=== PATIENT | female | born 1950 | race Caucasian/White ===

== ENCOUNTER 2023-03-18 13:45 | Inpatient (IN) | payer OTHER, MEDICAID ==
[~2023-03-18] VITALS: Ht 160 cm; Wt 49.4 kg
[2023-03-18 14:01] VITALS: BP_SYST 145; PULSE 94; RESP 22; TEMP 97; O2SAT 97
[2023-03-18 15:09] LABS: ANION GAP 9 (5-15); CALCIUM 9.1 mg/dL (8.4-11.0); CARBON DIOXIDE 30 mmol/L (23-29); CHLORIDE 103 mmol/L (98-107); CREATININE 0.83 mg/dL (0.55-1.30); GLUCOSE 100 mg/dL (74-106); POTASSIUM 3.4 mmol/L (3.5-5.1); SODIUM SERUM 142 mmol/L (136-145); UREA NITROGEN, BLOOD 10 mg/dL (8-21)
[2023-03-18 15:14] LABS: PROTHROMBIN TIME 10.8 SECS (9.5-12.5)
[2023-03-18 15:16] LABS: ALANINE AMINOTRANSFERASE 23 U/L (12-78); ALBUMIN 2.5 g/dL (3.4-4.8); ASPARTATE AMINOTRANSFERASE 23 U/L (10-37); CREATINE KINASE, TOTAL 14 U/L (26-192); LIPASE 63 U/L (73-393); TOTAL BILIRUBIN 0.8 mg/dL (0.0-1.0); TOTAL PROTEIN, SERUM 6.9 g/dL (6.4-8.3)
[2023-03-18 15:31] LABS: ACETONE, SERUM NEGATIVE (NEGATIVE)
[2023-03-18 15:39] LABS: BASOPHILS % (AUTO) 0.3 % (0.0-2.0); EOSINOPHILS # (AUTO) 0.1 K/uL (0.0-0.4); EOSINOPHILS % (AUTO) 1.2 % (0.0-4.0); HEMATOCRIT 34.2 % (36-48); HEMOGLOBIN 10.8 g/dL (12.0-16.0); LYMPHOCYTES # (AUTO) 0.8 K/uL (1.0-5.5); LYMPHOCYTES % (AUTO) 7.1 % (20.5-51.5); MEAN CORPUSCULAR HEMOGLOBIN 26 pg (27-31); MEAN CORPUSCULAR HGB CONC 32 % (32-36); MEAN CORPUSCULAR VOLUME 81 fL (79.0-98.0); MONOCYTES # (AUTO) 0.8 K/uL (0.0-1.0); MONOCYTES % (AUTO) 6.6 % (1.7-9.3); NEUTROPHILS # (AUTO) 9.8 K/uL (1.8-7.7); NEUTROPHILS % (AUTO) 84.8 % (40.0-70.0); PLATELET COUNT (AUTO) 374 K/uL (130-430); RED BLOOD CELL COUNT(AUTO) 4.21 MIL/uL (4.2-6.2); RED CELL DISTRIBUTION WIDTH 18.8 % (9.0-15.0); WHITE BLOOD COUNT (AUTO) 11.6 K/uL (4.8-10.8)
[2023-03-18] MEDS ORDERED: NACL 0.9% 1,000 ML IV ONE (16:30)
[2023-03-18] MEDS: D5/0.45 NS 1,000 ML IV SCH (16:45)
[2023-03-18] MEDS ORDERED: cefTRIAXone 1 GM IVPB PREMIX 50 ML IV SCH (18:00)
[2023-03-18] MEDS ORDERED: METO-290 PO (19:39)
[2023-03-18] MEDS ORDERED: ERYT-122 PO (19:39)
[2023-03-18] MEDS ORDERED: PRO40 PO (19:39)
[2023-03-18] MEDS ORDERED: SUCR1TAB2 PO (19:39)
[2023-03-18] MEDS ORDERED: METOCLOPRAMIDE HCL 10 MG/2 ML VIAL IVP ONE (19:45)
[2023-03-19] MEDS ORDERED: METOCLOPRAMIDE HCL 10 MG/2 ML VIAL IVP PRN (01:00)
[2023-03-19 01:05] VITALS: BP_SYST 141; PULSE 82; PULSE 87; RESP 19; TEMP 97.6; O2SAT 97
[2023-03-19 04:00] VITALS: BP_SYST 132; PULSE 80; RESP 18; TEMP 97.8; O2SAT 97
[2023-03-19 04:34] LABS: BASOPHILS % (AUTO) 0.5 % (0.0-2.0); EOSINOPHILS # (AUTO) 0.2 K/uL (0.0-0.4); EOSINOPHILS % (AUTO) 2.6 % (0.0-4.0); HEMATOCRIT 31.7 % (36-48); LYMPHOCYTES # (AUTO) 0.7 K/uL (1.0-5.5); LYMPHOCYTES % (AUTO) 8.8 % (20.5-51.5); MEAN CORPUSCULAR HEMOGLOBIN 26 pg (27-31); MEAN CORPUSCULAR HGB CONC 32 % (32-36); MEAN CORPUSCULAR VOLUME 81 fL (79.0-98.0); MONOCYTES # (AUTO) 0.7 K/uL (0.0-1.0); MONOCYTES % (AUTO) 8.9 % (1.7-9.3); NEUTROPHILS # (AUTO) 6.1 K/uL (1.8-7.7); NEUTROPHILS % (AUTO) 79.2 % (40.0-70.0); PLATELET COUNT (AUTO) 344 K/uL (130-430); RED BLOOD CELL COUNT(AUTO) 3.92 MIL/uL (4.2-6.2); RED CELL DISTRIBUTION WIDTH 19.1 % (9.0-15.0); WHITE BLOOD COUNT (AUTO) 7.7 K/uL (4.8-10.8)
[2023-03-19] MEDS: D5/0.45 NS 1,000 ML IV SCH (04:53)
[2023-03-19 04:58] LABS: ALANINE AMINOTRANSFERASE 19 U/L (12-78); ALBUMIN 2.2 g/dL (3.4-4.8); ANION GAP 10 (5-15); ASPARTATE AMINOTRANSFERASE 19 U/L (10-37); CALCIUM 8.5 mg/dL (8.4-11.0); CARBON DIOXIDE 29 mmol/L (23-29); CHLORIDE 104 mmol/L (98-107); CREATININE 0.74 mg/dL (0.55-1.30); GLUCOSE 92 mg/dL (74-106); POTASSIUM 3.3 mmol/L (3.5-5.1); SODIUM SERUM 143 mmol/L (136-145); TOTAL BILIRUBIN 0.8 mg/dL (0.0-1.0); TOTAL PROTEIN, SERUM 6.2 g/dL (6.4-8.3); UREA NITROGEN, BLOOD 9 mg/dL (8-21)
[2023-03-19 05:02] LABS: BILIRUBIN,URINE 1+ (NEGATIVE); BLOOD, URINE 3+ (NEGATIVE); CLARITY/URINE CLOUDY (CLEAR); COLOR,URINE RED (YELLOW); GLUCOSE,URINE NEGATIVE (NEGATIVE); KETONES,URINE NEGATIVE (NEGATIVE); LEUKOCYTE ESTERASE ,URINE TRACE (NEGATIVE); NITRITE, URINE POSITIVE (NEGATIVE); PROTEIN URINE 3+ (NEGATIVE); UROBILINOGEN,URINE 0.2 (0.2-1.0)
[2023-03-19 05:07] LABS: BILIRUBIN,URINE 1+ (NEGATIVE); BLOOD, URINE 2+ (NEGATIVE); CLARITY/URINE CLOUDY (CLEAR); GLUCOSE,URINE NEGATIVE (NEGATIVE); KETONES,URINE TRACE (NEGATIVE); NITRITE, URINE NEGATIVE (NEGATIVE); PH,URINE 8.5 (5.0-8.0); PROTEIN URINE 2+ (NEGATIVE); UROBILINOGEN,URINE 0.2 (0.2-1.0)
[2023-03-19 05:18] LABS: COLOR,URINE YELLOW (YELLOW); LEUKOCYTE ESTERASE ,URINE TRACE (NEGATIVE)
[2023-03-19 05:20] LABS: BACTERIA,URINE RARE /HPF (None Seen); RBC,URINE >100 /HPF (0-3); YEAST,URINE Few /HPF (None Seen)
[2023-03-19 05:23] LABS: BACTERIA,URINE FEW /HPF (None Seen); RBC,URINE 20-50 /HPF (0-3)
[2023-03-19 05:24] LABS: CALCIUM OXALATE CRYSTALS,UR 0-10 /HPF (None Seen)
[2023-03-19 07:55] VITALS: BP_SYST 140; PULSE 86; RESP 16; TEMP 96; O2SAT 97
[2023-03-19] MEDS: ONDANSETRON HCL 4 MG/2 ML VIAL IVP PRN ×2 (08:07→22:09)
[2023-03-19] MEDS: cefTRIAXone 1 GM IVPB PREMIX 50 ML IV SCH (08:08)
[2023-03-19 11:21] LABS: INR 1.1 (0.8-1.2); PROTHROMBIN TIME 11.3 SECS (9.5-12.5)
[2023-03-19 12:47] VITALS: BP_SYST 138; PULSE 83; RESP 17; TEMP 96.8; O2SAT 97
[2023-03-19 16:00] VITALS: BP_SYST 139; PULSE 85; RESP 16; TEMP 96.4; O2SAT 97
[2023-03-19] MEDS: KCL 20 mEq in NS 1000 mL 1,000 ML IV SCH (18:05)
[2023-03-19 19:50] VITALS: BP_SYST 144; PULSE 86; RESP 18; TEMP 97.6; O2SAT 100
[2023-03-19] MEDS: SUCRALFATE 1 GM TABLET PO SCH (22:02)
[2023-03-19] MEDS: ERYTHROMYCIN BASE 500 MG TABLET PO SCH (22:02)
[2023-03-19] MEDS: METOCLOPRAMIDE HCL 10 MG TABLET PO SCH (22:02)
[2023-03-20 01:09] VITALS: BP_SYST 141; PULSE 88; RESP 16; TEMP 96.8; O2SAT 98
[2023-03-20] MEDS: KCL 20 mEq in NS 1000 mL 1,000 ML IV SCH ×3 (04:37→22:03)
[2023-03-20 05:41] LABS: BASOPHILS % (AUTO) 0.2 % (0.0-2.0); EOSINOPHILS # (AUTO) 0.1 K/uL (0.0-0.4); EOSINOPHILS % (AUTO) 1.7 % (0.0-4.0); HEMATOCRIT 30.8 % (36-48); HEMOGLOBIN 9.8 g/dL (12.0-16.0); LYMPHOCYTES # (AUTO) 0.5 K/uL (1.0-5.5); LYMPHOCYTES % (AUTO) 6.3 % (20.5-51.5); MEAN CORPUSCULAR HEMOGLOBIN 26 pg (27-31); MEAN CORPUSCULAR HGB CONC 32 % (32-36); MEAN CORPUSCULAR VOLUME 81 fL (79.0-98.0); MONOCYTES # (AUTO) 0.8 K/uL (0.0-1.0); NEUTROPHILS # (AUTO) 6.8 K/uL (1.8-7.7); NEUTROPHILS % (AUTO) 81.8 % (40.0-70.0); PLATELET COUNT (AUTO) 345 K/uL (130-430); WHITE BLOOD COUNT (AUTO) 8.3 K/uL (4.8-10.8)
[2023-03-20 05:46] LABS: ANION GAP 10 (5-15); CALCIUM 8.1 mg/dL (8.4-11.0); CARBON DIOXIDE 25 mmol/L (23-29); CHLORIDE 107 mmol/L (98-107); CREATININE 0.68 mg/dL (0.55-1.30); GLUCOSE 91 mg/dL (74-106); POTASSIUM 3.4 mmol/L (3.5-5.1); SODIUM SERUM 142 mmol/L (136-145); UREA NITROGEN, BLOOD 7 mg/dL (8-21)
[2023-03-20 08:00] VITALS: BP_SYST 132; PULSE 104; RESP 18; TEMP 97.1; O2SAT 96
[2023-03-20] MEDS: cefTRIAXone 1 GM IVPB PREMIX 50 ML IV SCH (08:53)
[2023-03-20] MEDS: SUCRALFATE 1 GM TABLET PO SCH ×2 (08:56→14:12)
[2023-03-20] MEDS: ERYTHROMYCIN BASE 500 MG TABLET PO SCH ×2 (08:56→14:12)
[2023-03-20] MEDS: METOCLOPRAMIDE HCL 10 MG TABLET PO SCH (08:56)
[2023-03-20] MEDS ORDERED: PANTOPRAZOLE SODIUM 40 MG TAB PO SCH (09:00)
[2023-03-20] MEDS: ONDANSETRON HCL 4 MG/2 ML VIAL IVP PRN ×2 (09:04→22:01)
[2023-03-20] MEDS ORDERED: *TPN PER PHARMACY XX PRN (09:15)
[2023-03-20] MEDS ORDERED: DEXTROSE 50% JECT 50 ML DISP.SYRIN IVP PRN (09:15)
[2023-03-20] MEDS ORDERED: INSULIN REGULAR, HUMAN 100 UNITS/ML, 3 ML VIAL (humuLIN R) SUBCUT PRN (09:15)
[2023-03-20] MEDS ORDERED: PANTOPRAZOLE SODIUM 40 MG/VIAL (PROTONIX) IVP ONE (09:15)
[2023-03-20 09:44] LABS: PHOSPHORUS 3.7 mg/dL (2.7-4.5)
[2023-03-20 12:00] VITALS: BP_SYST 135; PULSE 99; RESP 17; TEMP 97; O2SAT 97
[2023-03-20] MEDS: METOCLOPRAMIDE HCL 10 MG/2 ML VIAL IVP PRN (14:17)
[2023-03-20] MEDS ORDERED: LORazepam 2 MG/ML VIAL IVP ONE (16:00)
[2023-03-20 16:43] VITALS: BP_SYST 133; PULSE 100; RESP 18; TEMP 97.3; O2SAT 96
[2023-03-20] MEDS ORDERED: LORazepam 2 MG/ML VIAL IVP PRN (17:15)
[2023-03-20] MEDS ORDERED: ERYTHROMYCIN LACTOBIONATE 500 MG in NS 50 ML IV SCH (18:00)
[2023-03-20 19:08] LABS: BF APPEARANCE UNSPUN CLEAR (CLEAR); BODY FLUID COLOR YELLOW (LT YELLOW); BODY FLUID TOTAL VOLUME 975 mL; LYMPHOCYTES, BODY FLUID 86 %; NEUTROPHIL, BODY FLUID 14 %; RBC, BODY FLUID 344 /uL; SOURCE/TYPE ,BODY FLUID PARACENTESIS; WBC, BODY FLUID 30 /uL
[2023-03-20 20:00] VITALS: O2SAT 97
[2023-03-20] MEDS ORDERED: POTASSIUM ACETATE IV SCH ×8 (21:00)
[2023-03-20] MEDS ORDERED: [UNRECOGNIZED DRUG - OTHER] IV SCH ×8 (21:00)
[2023-03-20] MEDS ORDERED: LORazepam 1 MG TABLET PO SCH (21:00)
[2023-03-20] MEDS ORDERED: TPN CENTRAL IV SCH ×8 (21:00)
[2023-03-20] MEDS ORDERED: SODIUM ACETATE IV SCH ×8 (21:00)
[2023-03-20] MEDS: FAT EMULSIONS 250 ML IV SCH (22:01)
[2023-03-21] MEDS: METOCLOPRAMIDE HCL 10 MG/2 ML VIAL IVP PRN ×3 (00:18→17:06)
[2023-03-21 00:23] VITALS: BP_SYST 158; PULSE 94; RESP 18; TEMP 98.2; O2SAT 98
[2023-03-21 02:27] LABS: BODY FLUID GLUCOSE 82 mg/dL
[2023-03-21] MEDS: ONDANSETRON HCL 4 MG/2 ML VIAL IVP PRN ×3 (04:56→22:34)
[2023-03-21 06:34] LABS: ALANINE AMINOTRANSFERASE 14 U/L (12-78); ALBUMIN 2.2 g/dL (3.4-4.8); ANION GAP 9 (5-15); ASPARTATE AMINOTRANSFERASE 17 U/L (10-37); CALCIUM 8.1 mg/dL (8.4-11.0); CARBON DIOXIDE 25 mmol/L (23-29); CHLORIDE 106 mmol/L (98-107); CREATININE 0.69 mg/dL (0.55-1.30); GLUCOSE 136 mg/dL (74-106); POTASSIUM 3.5 mmol/L (3.5-5.1); SODIUM SERUM 140 mmol/L (136-145); TOTAL BILIRUBIN 0.5 mg/dL (0.0-1.0); TOTAL PROTEIN, SERUM 6.2 g/dL (6.4-8.3); UREA NITROGEN, BLOOD 9 mg/dL (8-21)
[2023-03-21 08:00] VITALS: BP_SYST 148; PULSE 98; RESP 18; TEMP 97.2; O2SAT 100; O2SAT 98
[2023-03-21 08:10] VITALS: BP_SYST 148; PULSE 98; RESP 18; TEMP 97.2; O2SAT 98
[2023-03-21] MEDS: PANTOPRAZOLE SODIUM 40 MG/VIAL (PROTONIX) IVP SCH (09:22)
[2023-03-21] MEDS: cefTRIAXone 1 GM IVPB PREMIX 50 ML IV SCH (09:23)
[2023-03-21 11:51] VITALS: BP_SYST 137; PULSE 98; RESP 17; TEMP 98.3; O2SAT 94
[2023-03-21] MEDS: FLUCONAZOLE 100 mg/ NS 50 ML IV SCH (14:12)
[2023-03-21] MEDS ORDERED: DIATR MEGLU/DIATRIZ SOD 30 ML SOLUTION PO ONE (16:45)
[2023-03-21] MEDS: KCL 20 mEq in NS 1000 mL 1,000 ML IV SCH ×2 (17:09→22:35)
[2023-03-21 18:20] VITALS: BP_SYST 130; PULSE 84; RESP 18; TEMP 98.3; O2SAT 94
[2023-03-21 19:16] LABS: BODY FLUID TOTAL PROTEIN 4.2 g/dL
[2023-03-21 20:00] VITALS: BP_SYST 149; PULSE 91; RESP 17; TEMP 97.2; O2SAT 98
[2023-03-21] MEDS ORDERED: NALOXONE HCL 0.4 MG/ML AMP (NARCAN) IVP PRN (20:30)
[2023-03-21] MEDS ORDERED: [UNRECOGNIZED DRUG - OTHER] IV SCH ×9 (21:00)
[2023-03-21] MEDS ORDERED: POTASSIUM ACETATE IV SCH ×9 (21:00)
[2023-03-21] MEDS ORDERED: TPN CENTRAL IV SCH ×9 (21:00)
[2023-03-21] MEDS ORDERED: SODIUM ACETATE IV SCH ×9 (21:00)
[2023-03-21] MEDS ORDERED: K PHOS IV SCH ×9 (21:00)
[2023-03-21] MEDS: MORPHINE 2 MG/ML INJ. SYRINGE IVP PRN (21:04)
[2023-03-21] MEDS: FAT EMULSIONS 250 ML IV SCH (22:37)
[2023-03-22 01:31] VITALS: BP_SYST 148; PULSE 98; RESP 16; TEMP 99; O2SAT 98
[2023-03-22] MEDS: METOCLOPRAMIDE HCL 10 MG/2 ML VIAL IVP PRN (01:39)
[2023-03-22 02:52] VITALS: O2SAT 97
[2023-03-22] MEDS: ONDANSETRON HCL 4 MG/2 ML VIAL IVP PRN (06:16)
[2023-03-22 07:04] LABS: ALANINE AMINOTRANSFERASE 10 U/L (12-78); ALBUMIN 1.9 g/dL (3.4-4.8); ANION GAP 7 (5-15); ASPARTATE AMINOTRANSFERASE 13 U/L (10-37); CALCIUM 7.8 mg/dL (8.4-11.0); CARBON DIOXIDE 26 mmol/L (23-29); CHLORIDE 105 mmol/L (98-107); CREATININE 0.65 mg/dL (0.55-1.30); GLUCOSE 141 mg/dL (74-106); PHOSPHORUS 2.8 mg/dL (2.7-4.5); POTASSIUM 3.7 mmol/L (3.5-5.1); SODIUM SERUM 138 mmol/L (136-145); TOTAL BILIRUBIN 0.2 mg/dL (0.0-1.0); TOTAL PROTEIN, SERUM 5.5 g/dL (6.4-8.3); UREA NITROGEN, BLOOD 11 mg/dL (8-21)
[2023-03-22 08:00] VITALS: BP_SYST 129; PULSE 87; RESP 16; TEMP 97; O2SAT 97; O2SAT 98
[2023-03-22] MEDS: PANTOPRAZOLE SODIUM 40 MG/VIAL (PROTONIX) IVP SCH (10:06)
[2023-03-22] MEDS: FLUCONAZOLE 100 mg/ NS 50 ML IV SCH (14:34)
[2023-03-22 16:13] VITALS: BP_SYST 129; PULSE 108; RESP 17; TEMP 98.5; O2SAT 96
[2023-03-22] MEDS: KCL 20 mEq in NS 1000 mL 1,000 ML IV SCH (17:48)
[2023-03-22 19:00] VITALS: O2SAT 98
[2023-03-22 20:00] VITALS: BP_SYST 141; PULSE 97; RESP 18; TEMP 97.1; O2SAT 97
[2023-03-22] MEDS ORDERED: POTASSIUM ACETATE IV SCH ×10 (21:00)
[2023-03-22] MEDS ORDERED: K PHOS IV SCH ×10 (21:00)
[2023-03-22] MEDS ORDERED: TPN CENTRAL IV SCH ×10 (21:00)
[2023-03-22] MEDS ORDERED: SODIUM ACETATE IV SCH ×10 (21:00)
[2023-03-22] MEDS ORDERED: [UNRECOGNIZED DRUG - OTHER] IV SCH ×10 (21:00)
[2023-03-22] MEDS: FAT EMULSIONS 250 ML IV SCH (21:02)
[2023-03-22] MEDS: OCTREOTIDE ACETATE 100 MCG/ML AMP SUBCUT SCH (21:02)
[2023-03-22] MEDS: MORPHINE 2 MG/ML INJ. SYRINGE IVP PRN (21:51)
[2023-03-23] VITALS: BP_SYST 135; PULSE 95; RESP 18; TEMP 97.3; O2SAT 96
[2023-03-23 05:07] LABS: ALANINE AMINOTRANSFERASE 10 U/L (12-78); ALBUMIN 1.7 g/dL (3.4-4.8); ANION GAP 5 (5-15); ASPARTATE AMINOTRANSFERASE 14 U/L (10-37); CALCIUM 7.7 mg/dL (8.4-11.0); CARBON DIOXIDE 28 mmol/L (23-29); CHLORIDE 105 mmol/L (98-107); CREATININE 0.66 mg/dL (0.55-1.30); GLUCOSE 162 mg/dL (74-106); PHOSPHORUS 2.8 mg/dL (2.7-4.5); POTASSIUM 4.4 mmol/L (3.5-5.1); SODIUM SERUM 138 mmol/L (136-145); TOTAL BILIRUBIN 0.2 mg/dL (0.0-1.0); TOTAL PROTEIN, SERUM 5.2 g/dL (6.4-8.3); UREA NITROGEN, BLOOD 13 mg/dL (8-21)
[2023-03-23 08:19] VITALS: BP_SYST 154; PULSE 85; RESP 18; TEMP 97.6; O2SAT 97
[2023-03-23 09:00] VITALS: O2SAT 97
[2023-03-23] MEDS: PANTOPRAZOLE SODIUM 40 MG/VIAL (PROTONIX) IVP SCH (09:01)
[2023-03-23] MEDS: OCTREOTIDE ACETATE 100 MCG/ML AMP SUBCUT SCH ×2 (09:12→22:05)
[2023-03-23] MEDS: ONDANSETRON HCL 4 MG/2 ML VIAL IVP SCH ×2 (11:39→17:44)
[2023-03-23] MEDS: FLUCONAZOLE 100 mg/ NS 50 ML IV SCH (13:42)
[2023-03-23] MEDS: KCL 20 mEq in NS 1000 mL 1,000 ML IV SCH (13:43)
[2023-03-23 17:41] VITALS: BP_SYST 140; PULSE 97; RESP 18; TEMP 98.1; O2SAT 97
[2023-03-23 19:00] VITALS: O2SAT 97
[2023-03-23 20:00] VITALS: BP_SYST 128; PULSE 94; RESP 18; TEMP 97.5; O2SAT 98
[2023-03-23] MEDS ORDERED: TPN CENTRAL 0.0001 ML, SODIUM ACETATE 40 MEQ, POTASSIUM ACETATE 20 MEQ, K PHOS 9 MM, CA... IV SCH ×10 (21:00)
[2023-03-23] MEDS: MORPHINE 2 MG/ML INJ. SYRINGE IVP PRN (22:02)
[2023-03-23] MEDS: FAT EMULSIONS 250 ML IV SCH (22:12)
[2023-03-24 00:17] VITALS: BP_SYST 135; PULSE 85; RESP 18; TEMP 98.2; O2SAT 99
[2023-03-24] MEDS: ONDANSETRON HCL 4 MG/2 ML VIAL IVP SCH ×3 (01:18→12:32)
[2023-03-24 06:43] LABS: ALANINE AMINOTRANSFERASE 11 U/L (12-78); ALBUMIN 1.7 g/dL (3.4-4.8); ANION GAP 4 (5-15); ASPARTATE AMINOTRANSFERASE 15 U/L (10-37); CARBON DIOXIDE 29 mmol/L (23-29); CHLORIDE 103 mmol/L (98-107); CREATININE 0.69 mg/dL (0.55-1.30); GLUCOSE 124 mg/dL (74-106); PHOSPHORUS 3.2 mg/dL (2.7-4.5); POTASSIUM 4.7 mmol/L (3.5-5.1); SODIUM SERUM 136 mmol/L (136-145); TOTAL BILIRUBIN 0.2 mg/dL (0.0-1.0); TOTAL PROTEIN, SERUM 5.3 g/dL (6.4-8.3); UREA NITROGEN, BLOOD 13 mg/dL (8-21)
[2023-03-24 07:30] VITALS: O2SAT 97
[2023-03-24] MEDS ORDERED: GASTROGRAFIN 120 ML ONE (08:23)
[2023-03-24 08:41] VITALS: BP_SYST 133; PULSE 93; RESP 16; TEMP 97.5; O2SAT 97
[2023-03-24] MEDS: KCL 20 mEq in NS 1000 mL 1,000 ML IV SCH (09:30)
[2023-03-24] MEDS: PANTOPRAZOLE SODIUM 40 MG/VIAL (PROTONIX) IVP SCH (09:30)
[2023-03-24] MEDS: OCTREOTIDE ACETATE 100 MCG/ML AMP SUBCUT SCH (09:33)
[2023-03-24 14:22] VITALS: BP_SYST 115; PULSE 97; RESP 18; TEMP 97.4; O2SAT 98
[2023-03-24] MEDS: FLUCONAZOLE 100 mg/ NS 50 ML IV SCH (14:24)
[2023-03-24 17:31] VITALS: BP_SYST 124; PULSE 93; RESP 18; TEMP 97.6; O2SAT 99
[2023-03-24] MEDS ORDERED: SODIUM ACETATE IV SCH ×10 (21:00)
[2023-03-24] MEDS ORDERED: [UNRECOGNIZED DRUG - OTHER] IV SCH ×10 (21:00)
[2023-03-24] MEDS ORDERED: TPN CENTRAL IV SCH ×10 (21:00)
[2023-03-24] MEDS ORDERED: POTASSIUM ACETATE IV SCH ×10 (21:00)
[2023-03-24] MEDS ORDERED: K PHOS IV SCH ×10 (21:00)
[2023-03-25] MEDS ORDERED: MEGESTROL ACETATE 400 MG/10 ML UDC PO SCH (09:00)
== END 2023-03-24 18:40 | disposition home health service (06) | DRG 871 ==
LOC: SED 13:45 → SMU 16:33
PROVIDERS: ADMIT Internal Medicine; ATTEND Internal Medicine
PROC: 02HV33Z Insertion of Infusion Device into Superior Vena Cava, Percutaneous Approach (ICD-10-PCS; 2023-03-19)
PROC: B548ZZA Ultrasonography of Superior Vena Cava, Guidance (ICD-10-PCS; 2023-03-19)
PROC: 0W9G3ZZ Drainage of Peritoneal Cavity, Percutaneous Approach (ICD-10-PCS; 2023-03-20)
PROC: 3E0436Z Introduction of Nutritional Substance into Central Vein, Percutaneous Approach (ICD-10-PCS; principal; 2023-03-21)
DX: A41.9 Sepsis, unspecified organism (principal); E43 Unspecified severe protein-calorie malnutrition; C78.6 Secondary malignant neoplasm of retroperitoneum and peritoneum; K56.50 Intestinal adhesions [bands], unspecified as to partial versus complete obstruction; N13.6 Pyonephrosis; R18.8 Other ascites; J90 Pleural effusion, not elsewhere classified; Z68.1 Body mass index [BMI] 19.9 or less, adult; C56.9 Malignant neoplasm of unspecified ovary; N39.0 Urinary tract infection, site not specified; D64.9 Anemia, unspecified; E87.6 Hypokalemia; K59.00 Constipation, unspecified; Z90.710 Acquired absence of both cervix and uterus; Z92.21 Personal history of antineoplastic chemotherapy; Z80.3 Family history of malignant neoplasm of breast
CPT/HCPCS: 36415; 49083; 71045; 76376; 80048; 80053; 81000; 82009; 82550; 82947; 83605; 83690; 83735; 84100; 84157; 84478; 84484; 85025; 85610-TC; 85730-TC; 86304; 87040; 87070-TC; 87081; 87086; 87186-TC; 89051-TC; 89060-TC; 93005; 99285; C1751; C9113; J0610; J0696; J1450; J1956; J2060; J2270; J2354; J2405; J2765; J3475; J3480; J8597; Q9963; Q9964; Q9967